=== PATIENT | male | born 1995 | race Hispanic/Latino ===

== ENCOUNTER 2017-07-25 20:57 | Emergency (ER) | payer SELFPAY ==
[2017-07-25 21:39] LABS: #Monocytes 0.5 thou/uL (0.11-0.59); #Neutrophils 11.6 thou/uL (1.40-6.50); %Basophils 0.1 % (0.0-1.0); %Eosinophils 0.2 % (0.0-10.0); %Lymphocytes 7.3 % (28.0-48.0); %Monocytes 3.5 % (0.0-4.0); Mean Platelet Volume 7.1 fL (7.4-10.4)
[2017-07-25 22:00] LABS: ALT (SGPT) 40 U/L (8-55); AST (SGOT) 26 U/L (10-45); Alkaline Phosphatase 103 U/L (Less than 750); Anion Gap 15 mmol/L (10-20); BUN (Urea Nitrogen) 15 mg/dL (8.4-21.0); Bilirubin, Total 0.7 mg/dL (0.2-1.2); Calc. Creatinine Clearance 0 mL/min (70-130); Calcium 10.1 mg/dL (7.8-10.44); Carbon Dioxide 24 mmol/L (22-29); Chloride 101 mmol/L (98-107); Estimated GFR-MDRD Greater than 90; Globulin 3.6 g/dL (2.4-3.5); Protein, Total 8.7 g/dL (6.0-8.3)
[2017-07-25] MEDS ORDERED: Ondansetron HCl/PF 4 MG/2 ML Vial ONE (22:18)
[2017-07-25] MEDS ORDERED: Lidocaine Viscous Sol 2% 15 ml UD Cup ONE (23:25)
[2017-07-25] MEDS ORDERED: Mag-Al 1200 mg/1200 mg/30 ML UDCUP ONE (23:25)
== END 2017-07-26 00:25 | disposition home or self-care (01) ==
LOC: ERS 20:57
DX: R11.2 Nausea with vomiting, unspecified (principal)
CPT/HCPCS: 36415; 80053; 83690; 85025; 96361; 96374; J2405

== ENCOUNTER 2017-07-26 10:30 | Inpatient (IN) | payer SELFPAY ==
[2017-07-26 11:01] LABS: #Monocytes 1.4 thou/uL (0.11-0.59); #Neutrophils 12.8 thou/uL (1.40-6.50); %Basophils 0.3 % (0.0-1.0); %Lymphocytes 6.7 % (28.0-48.0); %Monocytes 9.1 % (0.0-4.0); Hematocrit 45.3 % (42.0-52.0); Mean Platelet Volume 6.9 fL (7.4-10.4); Red Blood Cell (RBC) Count 5.07 mill/uL (4.00-5.20); White Blood Cell (WBC) Count 15.2 thou/uL (4.8-10.8)
[2017-07-26 11:22] LABS: Bilirubin Negative (Negative); Blood, Urine Negative (Negative); Glucose, Urine (Dipstick) Negative (Negative); Ketone, Urine 40 mg/dL (Negative); Nitrite Negative (Negative); Protein, Urine (Dipstick) 30 mg/dL (Neg-Trace); Urobilinogen 0.2 mg/dL (0.2-1.0)
[2017-07-26 11:23] LABS: ALT (SGPT) 31 U/L (8-55); AST (SGOT) 19 U/L (10-45); Alkaline Phosphatase 82 U/L (Less than 750); Anion Gap 11 mmol/L (10-20); BUN (Urea Nitrogen) 13 mg/dL (8.4-21.0); Bilirubin, Total 0.9 mg/dL (0.2-1.2); Calc. Creatinine Clearance 0 mL/min (70-130); Calcium 9.5 mg/dL (7.8-10.44); Carbon Dioxide 27 mmol/L (22-29); Chloride 103 mmol/L (98-107); Estimated GFR-MDRD Greater than 90; Globulin 3.3 g/dL (2.4-3.5); Protein, Total 7.9 g/dL (6.0-8.3)
[2017-07-26 11:24] LABS: Bacteria/HPF None Seen HPF (None Seen); Hyaline Casts/LPF 0-3 HYALINE CAST LPF (0-3 Hyaline); RBC/HPF 0-3 HPF (0-3); Squamous Epithelial 0-3 HPF (0-3); WBC/HPF 0-3 HPF (0-3)
[2017-07-26] MEDS ORDERED: Morphine 4 MG/ML VIAL ONE ×2 (12:28→13:20)
[2017-07-26] MEDS ORDERED: Ondansetron HCl/PF 4 MG/2 ML Vial ONE ×2 (12:28→16:33)
[2017-07-26] MEDS ORDERED: Piperacillin/Tazobactam 4.5 GM in Sodium Chloride 0.9% 100 ML IVPB ONE (13:15)
--- NOTE | 2017-07-26 13:48 | CT ---
CT OF THE ABDOMEN AND PELVIS WITHOUT IV CONTRAST: Date: 07/26/17 INDICATION: Right lower quadrant abdominal pain, concern for appendicitis. FINDINGS: There is a retrocecal appendix. There is an appendicolith at the base of the appendix measuring 1.1 c m. The appendix is dilated up to 2.0 cm with periappendiceal fat stranding. Findings are suspicious f or noncomplicated appendicitis. There is a small amount of fluid surrounding the appendix. No drainab le fluid collection is evident. Small bowel is of normal caliber. Unopacified liver, spleen, pancreas , and adrenal glands are within normal limits. Kidneys are normal appearing. No acute osseous abnorma lities. IMPRESSION: Findings suspicious for noncomplicated appendicitis. Findings called to Dr. Alanis at 1257 hours on 07/26/17. CODE CR. POS: [facility]
[2017-07-26] MEDS ORDERED: Fentanyl 250 MCG/5 ML VIAL ONE (14:03)
[2017-07-26] MEDS ORDERED: Fentanyl 100 MCG/2 ML VIAL ONE (14:03)
[2017-07-26] MEDS ORDERED: Midazolam HCl 2 mg/2 ml Vial ONE (14:03)
[2017-07-26] MEDS ORDERED: Bupivacaine/Epinephrine 0.25% 30 ML VIAL ONE (14:13)
--- NOTE | 2017-07-26 14:14 | HP ---
DATE OF ADMISSION: 07/26/2017 HISTORY OF PRESENT ILLNESS: This is a 21-year-old man who presented to the emergency depart ment complaining of a 36 hour history of insidious onset periumbilical abdominal pain which settled i n the right lower quadrant where it has persisted over the last 24 hours. The pain is associated wit h multiple episodes of nausea and 2 bouts of nonbilious emesis. The patient denies any diarrhea. He admits to some chills. He denies any syncope or dyspnea. PAST MEDICAL HISTORY: Denies any previous medical problems. PAST SURGICAL HISTORY: The patient denies any previous surgeries. SOCIAL HISTORY: He is a high school senior who lives at home with his parents. He denies any cigare tte smoking, ethanol or illicit drug abuse. FAMILY HISTORY: The patient denies any family history of diabetes mellitus, hypertension, heart dise ase or cancer and this history was confirmed by his father at bedside. CURRENT MEDICATIONS: None. ALLERGIES: The patient denies any known drug allergies. REVIEW OF SYSTEMS: Ten point review of systems essentially unremarkable except for as stated in past medical history and chief complaint. PHYSICAL EXAMINATION: GENERAL: This reveals a 21-year-old normally developed man who is otherwise coherent and interactive and appears stated age. The patient is alert and oriented x3, appears to be in moderate acute distr ess secondary to his abdominal pain. VITAL SIGNS: Includes blood pressure 120/73, pulse 74, respiration 20, temperature is 100.6 degrees Fahrenheit, oxygen saturation is 96% on room air. HEENT: Reveals normocephalic and atraumatic. Pupils equal, round, and reactive to light and accommo dation. Extraocular muscles are intact bilaterally. He has no sclerae icterus present. Oral mucosa is pink and moist. No lesions are noted. NECK: Supple. No palpable lymphadenopathy or thyromegaly present. HEART: Reveals regular rate and rhythm, no murmurs or gallops auscultated. LUNGS: Clear to auscultation bilaterally. Breathing is regular and unlabored. ABDOMEN: Soft and nondistended. He has diffuse tenderness to palpation with gross rebound tendernes s present. Liver and spleen are otherwise nonpalpable below costal margins. NEUROLOGIC: Reveals no focal deficits present. PERTINENT LABORATORY DATA: Today includes CBC with 15,200 white blood cells, hemoglobin 15.1, hemato crit is 45.3, platelet count is 253,000. Metabolic profile: Sodium 137, potassium is 3.7, chloride is 103, bicarbonate 27, BUN 13, creatinine 0.87, glucose 127. Total bilirubin 0.9, AST and ALT ash l at 19 and 31 respectively. Alkaline phosphatase is also normal at 82. I have personally reviewed the CT scan of the abdomen and pelvis, which reveals dilated appendix in t he retrocecal position with periappendiceal fat stranding. There is minimum free fluid in the pelvic cavity. There is no pneumoperitoneum present. IMPRESSION: Acute appendicitis with generalized peritonitis. PLAN: Laparoscopic appendectomy. The above findings and plan have been discussed with the patient and his father at bedside. I have a dvised the patient of the risks and benefits of the proposed surgery. Risks include, but not limited to bleeding, infection, injury to bowel or surrounding structures. The patient and his father have indicated understanding of information given. I answered their questions. The patient has given con sent for this admission and surgical intervention.
[2017-07-26] MEDS ORDERED: Promethazine HCl 25 MG/ML VIAL IM PRN (15:55)
[2017-07-26] MEDS ORDERED: Dextrose 5% in Water 1,000 ML IV PRN (15:55)
[2017-07-26] MEDS ORDERED: Dextrose 50% Abboject 50 ML SYRINGE SLOW IVP PRN (15:55)
[2017-07-26] MEDS ORDERED: hydrALAZINE 20 MG/ML VIAL SLOW IVP PRN (15:55)
[2017-07-26] MEDS ORDERED: Morphine 4 MG/ML VIAL SLOW IVP PRN (15:55)
[2017-07-26] MEDS ORDERED: Ondansetron HCl/PF 4 MG/2 ML Vial IVP PRN (15:55)
[2017-07-26] MEDS ORDERED: traMADol HCl 50 MG TAB PO PRN ×2 (15:58)
[2017-07-26] MEDS ORDERED: Promethazine HCl 25 MG/ML VIAL SLOW IVP PRN (16:02)
[2017-07-26] MEDS ORDERED: Morphine Sulfate 2 MG/ML SYRINGE SLOW IVP PRN (16:02)
[2017-07-26] MEDS ORDERED: HYDROmorphone 2 MG/ML VIAL SLOW IVP PRN (16:02)
[2017-07-26] MEDS ORDERED: Meperidine HCl/PF 25 MG/ML VIAL SLOW IVP PRN (16:02)
[2017-07-26] MEDS ORDERED: Dexamethasone 20 MG/5 ML VIAL ONE (16:33)
[2017-07-26] MEDS ORDERED: Lidocaine 1% PF 5 ML VIAL ONE (16:33)
[2017-07-26] MEDS ORDERED: Ketorolac Tromethamine 30 MG/ML VIAL ONE (16:33)
[2017-07-26] MEDS ORDERED: Propofol 200 MG/20 ML VIAL ONE (16:33)
[2017-07-26] MEDS ORDERED: Succinylcholine Chloride 20 MG/ML 10 ml SYRINGE FS ONE (16:33)
[2017-07-26] MEDS ORDERED: Glycopyrrolate 0.2 MG/ML 5 ML SYRINGE ONE (16:33)
--- NOTE | 2017-07-26 16:41 | OP ---
DATE OF OPERATION: 07/26/2017 PREOPERATIVE DIAGNOSIS: Acute retrocecal appendicitis. POSTOPERATIVE DIAGNOSIS: Acute retrocecal appendicitis. PROCEDURE PERFORMED: Laparoscopic appendectomy. SURGEON: Jones Marie DO ANESTHESIA: General endotracheal. ESTIMATED BLOOD LOSS: Less than 5 mL. FLUIDS GIVEN: 800 mL crystalloids. SPONGE AND INSTRUMENT COUNT: Certified as correct x2. COMPLICATIONS: None apparent at the time of operation. INDICATIONS FOR PROCEDURE: A 21-year-old man who presented with a 36-hour history of abdomi nal pain. Clinical and radiographic examination was consistent with acute retrocecal appendicitis. The patient was brought to the operating room for appendectomy. Findings are consistent with gangrenous suppurative retrocecal appendicitis, no abscess or evidence o f perforation. DESCRIPTION OF PROCEDURE: Informed consent obtained from the patient who was brought to the operatin g room and placed in supine position. Following general anesthesia, abdomen was sterilely prepped an d draped in the usual fashion. The skin below the umbilicus was infiltrated with 0.25% Marcaine with epinephrine. A small curvilinear infraumbilical incision was made using an 11 scalpel. Umbilical s talk was grasped with Anat's and elevated. Veress needle inserted through the incision and placed in the peritoneal cavity through which the abdomen was insufflated with 2.5 liters of CO2 gas. Intra abdominal pressure was noted at 2 mmHg. Following abdominal insufflation, Veress needle was removed and a 5 mm trocar was introduced into the peritoneal cavity using the Visiport under laparoscopy. La paroscopy confirmed proper placement of the port, no injuries to underlying structures. An additiona l laparoscopy revealed the right lower quadrant as well as right upper quadrant encased by omental ad hesions. Under direct laparoscopy, a 5 mm suprapubic and 12 mm left lower quadrant ports were placed after the overlying skin was infiltrated with 0.25% Marcaine with epinephrine and appropriate incisi ons made. The patient was placed in the Trendelenburg position, rotated to his left. I introduced a Prestige grasper through the left lower quadrant port site using this to bluntly take down omental a dhesions from the right upper and lower quadrants. Suppurative retrocecal appendix was readily ident ified. I then introduced an Endo Satsuma forceps using this to grasp the appendix which was elevated . I used a [place] dissector to create a rent through the mesoappendix at the base. Endo-DANA with a blue load was used to divide the appendix at the appendicocecal junction. Mesoappendix was also d ivided at the base using a white reload of the Endo-DANA. The suppurative appendix is delivered out o f the abdominal cavity using an EndoCatch. Operative site was inspected for good hemostasis. Findin g no other pathology, laparoscopy was terminated. Fascia of the left lower quadrant port site was cl osed using 0 Vicryl suture and Endo closure device under laparoscopy. Abdomen was desufflated. All ports and instruments were removed and accounted for. The skin incisions were closed using 4-0 Monoc ryl suture in subcuticular fashion. Dermabond was applied to all incisions. The patient tolerated t he operation without any apparent complication and was returned to recovery room in satisfactory cond ition.
[2017-07-26] MEDS: Acetaminophen 500 MG TAB PO SCH (20:46)
[2017-07-26] MEDS: Ketorolac Tromethamine 30 MG/ML VIAL IVP SCH ×2 (20:46→23:15)
[2017-07-26] MEDS ORDERED: Enoxaparin Sodium 40 MG/0.4 ML SYRINGE SC SCH (21:00)
[2017-07-26] MEDS: Piperacillin/Tazobactam 3.375 GM in Sodium Chloride 0.9% 100 ML IVPB SCH (23:14)
[2017-07-27] MEDS: Ketorolac Tromethamine 30 MG/ML VIAL IVP SCH ×3 (00:22→12:25)
[2017-07-27] MEDS: Acetaminophen 500 MG TAB PO SCH ×3 (00:23→12:25)
[2017-07-27] MEDS: Famotidine 20 MG TAB PO SCH ×2 (00:25→09:03)
[2017-07-27] MEDS: Lactated Ringer's 1,000 ML IV SCH ×2 (00:25→05:30)
[2017-07-27] MEDS: Piperacillin/Tazobactam 3.375 GM in Sodium Chloride 0.9% 100 ML IVPB SCH ×3 (01:18→12:25)
[2017-07-27 05:53] VITALS: BMI 22.7
[2017-07-27 15:03] VITALS: BP 114/66; TEMP 98.2
--- NOTE | 2017-07-28 02:11 | DIS ---
DATE OF ADMISSION: 07/26/2017 DATE OF DISCHARGE: 07/27/2017 ADMISSION DIAGNOSIS: Acute appendicitis. CONSULTATIONS: None. PROCEDURE: Laparoscopic appendectomy. SUMMARY: The patient is a 21-year-old, man, who presented to the emergency department compl aining of a 36-hour history of insidious onset of periumbilical abdominal pain, which settled to the right lower quadrant where it persisted over the last 24 hours. The patient had multiple episodes of pain and nausea and two episodes of vomiting, no diarrhea. The patient was brought to the emergency department, evaluated, examined, and noted to have the above. The patient will be taken to the oper ating room and undergo his above procedure, which he tolerated well. The patient overnight had no is sues. In the following morning, the patient tolerated his diet. His pain was controlled and he was discharged home. He will follow up in our clinic in 2 weeks, sooner as needed.
== END 2017-07-27 17:00 | disposition home or self-care (01) | DRG 340 ==
LOC: ERS 10:30 → SURG A 14:26
PROVIDERS: ADMIT Surgery; ATTEND Surgery
PROC: 0DTJ4ZZ Resection of Appendix, Percutaneous Endoscopic Approach (ICD-10-PCS; principal; 2017-07-26)
DX: K35.2 Acute appendicitis with generalized peritonitis (principal)
CPT/HCPCS: 36415; 74176; 80053; 81003; 81015; 85025; 88304; 96361; 96365; 96375; 96376; J1100; J1650; J1885; J2001; J2250; J2270; J2405; J2543; J2704; J3010; J7050